=== PATIENT | female | born 2000 | race Hispanic/Latino ===

== ENCOUNTER 2021-05-06 00:23 | Emergency (ER) | payer MEDICAID ==
[~2021-05-06] VITALS: Ht 154.9 cm; Wt 59.0 kg
[2021-05-06 01:28] LABS: APPEARANCE,URINE Clear (CLEAR); BILIRUBIN,URINE Negative (NEGATIVE); COLOR,URINE Yellow (YELLOW); GLUCOSE, URINE (UA) Negative (NEGATIVE); KETONES,URINE Negative (NEGATIVE); LEUKOCYTE ESTERASE ,URINE Trace (NEGATIVE); NITRATE,URINE Negative (NEGATIVE); OCCULT BLOOD,URINE Negative (NEGATIVE); PH,URINE 6.5 (5.0-8.0); PROTEIN,URINE Negative (NEGATIVE)
[2021-05-06 01:32] LABS: HCG,QUAL RESULT NEGATIVE (NEGATIVE)
[2021-05-06 01:42] LABS: BACTERIA,URINE Few /HPF (None Seen); RBC,URINE None Seen /HPF (0-1); WBC,URINE 0-1 /HPF (0-1)
[2021-05-06 01:43] LABS: MUCUS,URINE Moderate LPF (None Seen); SQUAMOUS EPITHELIAL CELL,UR 0-2 /HPF (0-2)
[2021-05-06] MEDS ORDERED: PHEN12S PR (02:39)
[2021-05-06] MEDS ORDERED: METO-296 PO (02:39)
[2021-05-06] MEDS ORDERED: MAG/ALUM/SIMETH 30 ML UDCUP PO ONE (03:00)
[2021-05-06] MEDS ORDERED: LIDOCAINE HCL 2% VISCOUS 15 ML UDCUP PO ONE (03:00)
[2021-05-06] MEDS ORDERED: PROMETHAZINE HCL 25 MG/ML 1ML AMPULE IM ONE (03:00)
[2021-05-06] MEDS ORDERED: METOCLOPRAMIDE 10 MG TABLET PO ONE (03:00)
[2021-05-06 03:06] VITALS: BP 122/72
== END 2021-05-06 03:11 | disposition home or self-care (01) ==
LOC: EDH 00:23
DX: R10.13 Epigastric pain (principal); R11.0 Nausea; Z79.899 Other long term (current) drug therapy; Z86.19 Personal history of other infectious and parasitic diseases; Z90.49 Acquired absence of other specified parts of digestive tract
CPT/HCPCS: 81001; 81025; 96372; 99284; J2550

== ENCOUNTER 2021-05-15 10:21 | Emergency (ER) | payer MEDICAID ==
[~2021-05-15] VITALS: Ht 154.9 cm; Wt 57.6 kg
[~2021-05-15 10:21] MED LIST: METO-296 PO; PHEN12S PR
[2021-05-15 11:11] LABS: EOSINOPHILS % (AUTO) 0.8 % (0.0-8.0); HEMATOCRIT 41.3 % (36-48); LYMPHOCYTES % (AUTO) 37.9 % (21.0-51.0); MEAN CORPUSCULAR HEMOGLOBIN 32.1 pg (27.0-33.0); MEAN CORPUSCULAR HGB CONC 34.9 g/dL (32.0-36.0); MONOCYTES % (AUTO) 6.6 % (3.0-13.0); NEUTROPHILS % (AUTO) 54.4 % (40.0-77.0); PLATELET COUNT (AUTO) 262 K/uL (130-400); RED BLOOD CELL COUNT(AUTO) 4.49 MIL/uL (4.00-5.50); RED CELL DISTRIBUTION WIDTH 11.7 % (11.0-15.5); WHITE BLOOD COUNT (AUTO) 3.9 K/uL (4.8-10.8)
[2021-05-15 11:19] LABS: CREATININE 0.8 mg/dL (0.5-1.5)
[2021-05-15 11:23] LABS: ALBUMIN 3.9 g/dL (3.5-5.0); BILIRUBIN,TOTAL 0.5 mg/dL (0.2-1.0); TOTAL PROTEIN, SERUM 7.4 g/dL (6.0-8.3)
[2021-05-15 11:42] LABS: APPEARANCE,URINE Clear (CLEAR); BILIRUBIN,URINE Negative (NEGATIVE); COLOR,URINE Dark Yellow (YELLOW); GLUCOSE, URINE (UA) Negative (NEGATIVE); KETONES,URINE Trace mg/dL (NEGATIVE); LEUKOCYTE ESTERASE ,URINE Small (NEGATIVE); NITRATE,URINE Negative (NEGATIVE); OCCULT BLOOD,URINE Trace (NEGATIVE); PROTEIN,URINE Negative (NEGATIVE)
[2021-05-15 11:50] LABS: HCG,QUAL RESULT NEGATIVE (NEGATIVE)
[2021-05-15 11:54] LABS: BACTERIA,URINE Rare /HPF (None Seen); MUCUS,URINE Moderate LPF (None Seen); RBC,URINE 0-1 /HPF (0-1); SQUAMOUS EPITHELIAL CELL,UR Rare /HPF (0-2); WBC,URINE 0-1 /HPF (0-1)
[2021-05-15] MEDS ORDERED: PHEN12S PR (13:21)
[2021-05-15 13:28] VITALS: BP 118/81
== END 2021-05-15 13:29 | disposition home or self-care (01) ==
LOC: EDH 10:21
DX: R10.13 Epigastric pain (principal); R42 Dizziness and giddiness; K21.9 Gastro-esophageal reflux disease without esophagitis; Z79.899 Other long term (current) drug therapy; Z87.19 Personal history of other diseases of the digestive system
CPT/HCPCS: 36415; 80053; 81001; 81025; 82150; 82550; 83690; 85025

== ENCOUNTER 2021-05-15 22:24 | Emergency (ER) | payer MEDICAID ==
[~2021-05-15] VITALS: Ht 154.9 cm; Wt 57.6 kg
[2021-05-15] MEDS ORDERED: ONDANSETRON 4MG TABLET PO ONE (23:00)
[2021-05-15] MEDS ORDERED: FAMOTIDINE 20MG TAB PO ONE (23:00)
[2021-05-15] MEDS ORDERED: LIDOCAINE HCL 2% VISCOUS 15 ML UDCUP PO ONE (23:00)
[2021-05-15] MEDS ORDERED: DICYCLOMINE 20MG (10MG/ML) AMP IM ONE (23:00)
[2021-05-15] MEDS ORDERED: MAG/ALUM/SIMETH 30 ML UDCUP PO ONE (23:00)
[2021-05-16] MEDS ORDERED: KETOROLAC 30MG VIAL (30MG/ML) IM ONE
[2021-05-16] MEDS ORDERED: 0.9%NACL 1000ML 1,000 ML IV ONE (01:00)
[2021-05-16 04:13] VITALS: BP 102/63
== END 2021-05-16 04:12 | disposition home or self-care (01) ==
LOC: EDH 22:24
DX: R10.10 Upper abdominal pain, unspecified (principal); R11.0 Nausea; R42 Dizziness and giddiness; Z79.899 Other long term (current) drug therapy
CPT/HCPCS: 36415; 74177; 80053; 81001; 81025; 82150; 82550; 83690; 85025; 96360; 96361; 96372 ×2; 99283; 99285; J0500; J1885; J7030; Q0162

== ENCOUNTER → 2022-03-16 | Outpatient (CLI) | payer MEDICAID | END | disposition home or self-care (01) | LOC: SHCH 08:05 | PROVIDERS: ATTEND Student in an Organized Health Care Education/Training Program | DX: R06.02 Shortness of breath (principal) | CPT/HCPCS: 93306 ==